=== PATIENT | male | born 1995 | race American Indian/Alaskan Native ===

== ENCOUNTER 2018-01-23 20:22 | Emergency (ER) | payer SELFPAY ==
[2018-01-23 20:39] VITALS: BP 122/72
== END 2018-01-23 23:25 | disposition left against medical advice (07) ==
LOC: EDBD → ED 20:22
DX: S61.210A Laceration without foreign body of right index finger without damage to nail, initial encounter (principal); W26.0XXA Contact with knife, initial encounter; Y93.89 Activity, other specified; Y99.8 Other external cause status; Y92.89 Other specified places as the place of occurrence of the external cause; Z53.21 Procedure and treatment not carried out due to patient leaving prior to being seen by health care provider